=== PATIENT | female | born 2000 | race Two or more races ===

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

== ENCOUNTER 2023-03-15 12:26 | Emergency (ER) | payer MEDICAID ==
[~2023-03-15] VITALS: Ht 162.6 cm; Wt 93.8 kg
[2023-03-15 13:45] VITALS: BP 130/61; PULSE 98; RESP 16; O2SAT 98
== END 2023-03-15 14:18 | disposition home or self-care (01) ==
LOC: ER 12:26
DX: S53.492A Other sprain of left elbow, initial encounter (principal); W22.8XXA Striking against or struck by other objects, initial encounter; Y93.89 Activity, other specified; Y92.89 Other specified places as the place of occurrence of the external cause; Y99.8 Other external cause status
CPT/HCPCS: 73080